=== PATIENT | male | born 1945 | race Caucasian/White ===

== ENCOUNTER 2019-12-21 15:06 | Emergency (ER) | payer OTHER, SELFPAY ==
[2019-12-21 15:17] VITALS: BP 133/63; PULSE 65; RESP 18; TEMP 36.8; O2SAT 93; BMI 26.6
--- NOTE | 2019-12-21 15:32 | XR_ITS ---
WS: [id number] PORTABLE CHEST HISTORY: dyspnea/cough COMPARISON: 09/22/2016 Prior CABG. Lungs are clear and well expanded. No pleural effusion or pneumothorax. Cardiac size: Normal. Mediastinum/Aorta: Mild atherosclerosis aorta. No acute osseous abnormalities. XR/XR chest 1V portable [id number] IMPRESSION: Prior CABG. No acute cardiopulmonary disease.
--- NOTE | 2019-12-21 15:32 | ECG_ITS ---
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 Measurements Intervals [place] Rate: 59 P: 48 [place]: 212 QRS: 25 QRSD: 99 T: 41 QT: 443 QTc: 442 Interpretive Statements SINUS BRADYCARDIA WITH FIRST DEGREE AV BLOCK Compared to ECG 09/22/2016 18:26:27 First degree AV block now present Sinus rhythm no longer present Myocardial infarct finding no longer present Diffuse early repolarization change Electronically Signed On 12-21-2019 20:34:46 CDT by Mirella Flannery M.D. [email or web address]
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
[2019-12-21 16:46] LABS: Basophils % 0.3 %; Eosinophils # 0.1 10^3/uL (0.0-0.8); Eosinophils % 0.8 %; Hematocrit 42.3 % (42.0-52.0); Hemoglobin 13.8 g/dL (11.7-16.6); Lymphocytes # 1.2 10^3/uL (0.8-4.8); Lymphocytes % 19.1 %; Mean Corpuscular HGB Conc 32.6 g/dL (30.0-36.0); Mean Corpuscular Hemoglobin 31.7 pg (28.0-34.0); Mean Platelet Volume 10.3 fL (7.4-10.4); Monocytes # 0.5 10^3/uL (0.2-0.9); Monocytes % 7.6 %; Neutrophils # 4.67 10^3/uL (1.8-7.7); Nucleated Red Blood Cells % 0 %; Platelet Count 188 10^3/cmm (130-400); Red Blood Count 4.36 10^6/uL (4.1-5.3); Red Cell Distribution Width 12.6 % (12.1-15.1); White Blood Count 6.5 10^3/uL (4.0-10.0)
[2019-12-21 17:04] LABS: Alanine Aminotransferase 58 U/L (0-41); Albumin Level 4.5 g/dL (3.5-5.2); Alkaline Phosphatase 76 IU/L (40-130); Anion Gap 14.6 (5-19); Aspartate Amino Transferase 33 U/L (0-40); Blood Urea Nitrogen 19 mg/dL (8-23); Calcium 9.2 mg/dL (8.5-10.5); Carbon Dioxide 24 mmol/L (22-29); Chloride 106 mmol/L (98-107); Globulin 2.9 g/dL (1.3-4.6); Glucose 111 mg/dL (65-115); Osmolality Calculated 287 mOsm/kg (285-295); Potassium 4.6 mmol/L (3.5-5.1); Sodium 140 mmol/L (136-145); Total Bilirubin 0.3 mg/dL (0.15-1.2); Total Protein 7.4 g/dL (6.6-8.7)
[2019-12-21 17:07] VITALS: BP 132/70; BP 137/66; BP 139/63; PULSE 62; PULSE 63; PULSE 65; O2SAT 97
--- NOTE | 2019-12-21 17:13 | CTR_ITS ---
PROCEDURE INFORMATION: Exam: CT Head Without Contrast Exam date and time: 12/21/2019 5:20 PM Age: 74 years old Clinical indication: Dizziness; Additional info: Near syncope, visual changes TECHNIQUE: Imaging protocol: Computed tomography of the head without contrast. Radiation optimization: All CT scans at this facility use at least one of these dose optimization techniques: automated exposure control; mA and/or kV adjustment per patient size (includes targeted exams where dose is matched to clinical indication); or iterative reconstruction. COMPARISON: CT head wo con* [id number] 12/04/2014 2:28 PM RADIATION DOSE METRICS: Total DLP (mGy-cm): 885.05 FINDINGS: Brain: Currently no visible evidence of acute intracranial pathologic process, trauma, or hemorrhage. Advanced small vessel ischemic disease with senile periventricular leukomalacia. Evidence of antecedent lacunar infarctions. Old lacunar infarction left lentiform nucleus versus large Virchow Thomas space. Atrophic changes not inconsistent with the patient's chronological age. Ventricles: No ventriculomegaly. Bones/joints: Unremarkable. No acute fracture. Sinuses: Visualized sinuses are unremarkable. No fluid levels. Mastoid air cells: Visualized mastoid air cells are well aerated. Vasculature: Advanced cerebral arterial sclerosis. Soft tissues: Unremarkable. CT/CT head wo con* [id number] IMPRESSION: 1. Currently no visible evidence of acute intracranial pathologic process or hemorrhage. 2. Advanced small vessel ischemic disease. 3. Antecedent lacunar infarctions. 4. Atrophic changes not inconsistent with the patient's age. 5. Advanced cerebral arterial sclerosis. Radiation Dose CTDIVOL = (mGy): DLP = 885.05 (mGy-cm)
[2019-12-21 17:26] LABS: Add Urine Microscopic? YES; Bilirubin Urine Neg (NEGATIVE); Blood Urine Trace (Negative); Glucose Urine UA Norm (Normal); Ketones Urine Negative (Negative); Leukocyte Esterase Urine 1+ (Negative); Nitrate Urine Negative (Negative); Protein Urine Neg (Negative); Urine Appearance Cloudy (CLEAR); Urine Color Yellow (Yellow); Urobilinogen Urine 1 mg/dL (Negative); pH Urine 6 (5-7)
[2019-12-21 17:27] LABS: RBC Urine 0-4 /hpf (0-2)
[2019-12-21 17:28] LABS: Add Urine Culture? Yes; Bacteria Urine 4+; Squamous Epithelial Cell Urine 0-4 (0-5); WBC Urine 80-100 /hpf (0-5)
[2019-12-21 19:06] VITALS: BP 134/66; PULSE 66; RESP 16; O2SAT 97
== END 2019-12-21 19:09 | disposition home or self-care (01) ==
PROVIDERS: Emergency Provider Family Medicine; PCP Internal Medicine
DX: R55 Syncope and collapse (principal); N30.90 Cystitis, unspecified without hematuria; I25.10 Atherosclerotic heart disease of native coronary artery without angina pectoris; I10 Essential (primary) hypertension; Z87.891 Personal history of nicotine dependence
CPT/HCPCS: 12345; 36415; 70450; 71045; 80053; 81001; 81003; 85025; 87086; 93005; 99283; 99284

== ENCOUNTER → 2020-08-01 10:38 | Outpatient (BNVA) | payer OTHER, SELFPAY | PROVIDERS: PCP Internal Medicine; Visit Provider Internal Medicine Cardiovascular Disease | DX: I25.10 Atherosclerotic heart disease of native coronary artery without angina pectoris (principal); E78.5 Hyperlipidemia, unspecified; I10 Essential (primary) hypertension | CPT/HCPCS: 80053; 80061; 85025 ==

== ENCOUNTER → 2021-02-06 08:27 | Outpatient (BNVA) | payer OTHER, SELFPAY | PROVIDERS: PCP Internal Medicine; Referring Provider Family Medicine; Visit Provider Nurse Practitioner | DX: G31.84 Mild cognitive impairment of uncertain or unknown etiology (principal) | CPT/HCPCS: 99204 ==

== ENCOUNTER → 2021-03-14 14:18 | Outpatient (BNVA) | payer OTHER, SELFPAY | PROVIDERS: PCP Internal Medicine; Visit Provider Nurse Practitioner Family | DX: Z20.822 Contact with and (suspected) exposure to COVID-19 (principal); J06.9 Acute upper respiratory infection, unspecified | CPT/HCPCS: 87635 ==

== ENCOUNTER 2021-03-21 13:03 | Outpatient (CLI) | payer OTHER, SELFPAY ==
--- NOTE | 2021-03-21 13:45 | MR_ITS ---
WS: [id number] MRI HEAD WITH CONTRAST TECHNIQUE: Sagittal T1, T2 axial, T2 axial FLAIR, axial susceptibility weighted imaging, axial diffus ion weighted images, and coronal T2 images were obtained. Pre and post-T1 axial and post T1 coronal i mages. ADC and FSPGR images. CLINICAL INFORMATION: R41.3 - Other amnesia COMPARISON: CT January 10, 2021 FINDINGS: No evidence of restricted diffusion to suggest acute ischemia. Ventricular system and basal cisterns are patent. Moderate to advanced small vessel changes with moderate parenchymal volume loss. Small ve ssel changes in the nedra. Chronic lacunar infarct in the left lateral basal ganglia. Normal posterior fossa. Tiny chronic lacunar infarcts right cerebellum. Normal vascular flow voids at the skull base. No extra-axial fluid collections. No evidence of mass or mass effect. Paranasal sinuses and mastoid air cells are well aerated. No hemosiderin on the susceptibility weighted images. Normal optic chiasm and pituitary infundibulum. Moderate symmetric atrophy temporal lobes and hippocampal formations. Normal cavernous sinuses and M giana's cave. No abnormal gadolinium enhancement. MR/MR head wo/w con [id number] IMPRESSION: 1. No evidence of restricted diffusion to suggest acute ischemia. 2. Moderate to advanced small vessel changes with moderate parenchymal volume loss. Small vessel changes in the nedra. 3. Chronic lacunar infarct left basal ganglia. 4. A few tiny chronic lacunar infarcts right cerebellum. 5. Moderate symmetric atrophy temporal lobes and hippocampal formations. No si gnal abnormalities in the mesial temporal lobes. 6. No abnormal gadolinium enhancement.
== END 2021-03-21 13:04 | disposition home or self-care (01) ==
LOC: RADSHAW 13:07
PROVIDERS: PCP Family Medicine; Visit Provider Nurse Practitioner
DX: R41.89 Other symptoms and signs involving cognitive functions and awareness (principal); R41.3 Other amnesia
CPT/HCPCS: 70553; A9579

== ENCOUNTER → 2021-10-02 07:54 | Outpatient (BNVA) | payer OTHER, SELFPAY | PROVIDERS: PCP Family Medicine; Visit Provider Nurse Practitioner | DX: F01.50 Vascular dementia, unspecified severity, without behavioral disturbance, psychotic disturbance, mood disturbance, and anxiety (principal) | CPT/HCPCS: 99213; 99214 ==

== ENCOUNTER 2021-12-30 09:51 | Emergency (ER) | payer OTHER, MEDICARE, SELFPAY ==
[2021-12-30 10:08] VITALS: BP 124/63; PULSE 59; RESP 16; TEMP 36.6; O2SAT 96; BMI 27.3
--- NOTE | 2021-12-30 10:17 | XRR_ITS ---
PROCEDURE INFORMATION: Exam: XR Lumbosacral Spine Exam date and time: 12/30/2021 10:28 AM Age: 76 years old Clinical indication: Patient HX: Low back pain. PT is unsure of what is causing the pain. X 3 wks. PT stated pain is getting worse and is now really bad pain in the low back that is not going away TECHNIQUE: Imaging protocol: Radiologic exam of the lumbosacral spine. Views: 2 or 3 views. COMPARISON: No relevant prior studies available. FINDINGS: Bones/joints: No spine curvature seen. The normal lumbar lordosis is maintained, without listhesis. No fracture identified. Vertebral body heights are well preserved. There is multilevel degenerative changes, manifested by intervertebral disc space narrowing, endplate osteophytes and facet joint arthrosis. Soft tissues: Unremarkable. XR/XR lumbar spine 2-3V* [id number] IMPRESSION: 1. No acute injury. 2. Degenerative changes of the lumbar spine.
[2021-12-30 10:19] VITALS: BP 124/63; PULSE 59; RESP 16; TEMP 36.6; O2SAT 96
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
[2021-12-30] MEDS: acetaminophen 500 mg Tablet 1000 MG PO (10:39)
[2021-12-30] MEDS: orphenadrine 30 mg/mL Inj 2 mL 60 MG IM (10:41)
--- NOTE | 2021-12-30 11:11 | PC.NURSE ---
Pt states that pain to lower back has improved to a 3/10 after having received ordered tylenol, methylprednisolone, and ophenadrine.
[2021-12-30 11:40] VITALS: BP 158/70; PULSE 61; RESP 16; O2SAT 95
== END 2021-12-30 11:30 | disposition home or self-care (01) ==
PROVIDERS: Emergency Provider Physician Assistant; PCP Family Medicine
DX: M54.16 Radiculopathy, lumbar region (principal); Z79.02 Long term (current) use of antithrombotics/antiplatelets; Z79.82 Long term (current) use of aspirin; I25.10 Atherosclerotic heart disease of native coronary artery without angina pectoris; E78.5 Hyperlipidemia, unspecified; I10 Essential (primary) hypertension; Z87.891 Personal history of nicotine dependence
CPT/HCPCS: 72100; 96372; 99284; J2360; J2930

== ENCOUNTER 2022-01-16 13:21 | Emergency (ER) | payer OTHER, MEDICARE, SELFPAY ==
[2022-01-16 13:41] VITALS: BP 153/73; PULSE 67; RESP 16; TEMP 36.5; O2SAT 95; BMI 26.6
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
[2022-01-16 14:30] VITALS: RESP 18
[2022-01-16] MEDS: morphine 4 mg/mL SDV 1 mL IM (14:30)
[2022-01-16] MEDS: orphenadrine 30 mg/mL Inj 2 mL 60 MG IM (14:30)
--- NOTE | 2022-01-17 11:32 | DCPLANNER ---
Addendum entered by Mehnaz Bee 01/31/22 13:12: Patient had a follow up appointment for patient with ortho on 01.28.22 - patient did attend appointment. Addendum entered by Mehnaz Bee 01/17/22 11:43: Patient has [employer] insurance, case briefer sent patients information to [facility] with [employer] in [facility] community for the authorization process to be started. Original Note: product management manager had message to schedule a follow up appointment for patient with ortho. product management manager sent patients information to the front office staff at ortho. Patients information will be printed and reviewed. Clinic will call patient with appointment information.
== END 2022-01-16 15:18 | disposition home or self-care (01) ==
PROVIDERS: Emergency Provider Physician Assistant; PCP Family Medicine
DX: M54.16 Radiculopathy, lumbar region (principal); Z79.02 Long term (current) use of antithrombotics/antiplatelets; Z79.82 Long term (current) use of aspirin; I25.10 Atherosclerotic heart disease of native coronary artery without angina pectoris; E78.5 Hyperlipidemia, unspecified; I10 Essential (primary) hypertension; Z87.891 Personal history of nicotine dependence
CPT/HCPCS: 96372; 99284; J2270; J2360

== ENCOUNTER 2022-01-24 06:00 | Outpatient (RCR) | payer OTHER, SELFPAY | END 2022-01-29 23:59 | disposition home or self-care (01) | LOC: SPT 06:00 | PROVIDERS: PCP Family Medicine; Visit Provider Family Medicine | DX: M54.50 Low back pain, unspecified (principal) | CPT/HCPCS: 97110; 97161 ==

== ENCOUNTER 2022-01-26 14:15 | Emergency (ER) | payer OTHER, MEDICARE, SELFPAY ==
[2022-01-26 14:38] VITALS: BP 139/64; PULSE 65; RESP 18; TEMP 36.4; O2SAT 94; BMI 26.6
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
== END 2022-01-26 16:06 | disposition home or self-care (01) ==
PROVIDERS: Emergency Provider Physician Assistant; PCP Family Medicine
DX: G89.29 Other chronic pain (principal); M54.50 Low back pain, unspecified; Z79.02 Long term (current) use of antithrombotics/antiplatelets; Z79.82 Long term (current) use of aspirin; I25.10 Atherosclerotic heart disease of native coronary artery without angina pectoris; E78.5 Hyperlipidemia, unspecified; I10 Essential (primary) hypertension; Z87.891 Personal history of nicotine dependence
CPT/HCPCS: 99283

== ENCOUNTER → 2022-01-28 09:48 | Outpatient (BNVA) | payer OTHER, MEDICARE, SELFPAY | PROVIDERS: PCP Family Medicine; Visit Provider Physician Assistant | DX: M51.36 Other intervertebral disc degeneration, lumbar region (principal) | CPT/HCPCS: 72110 ==

== ENCOUNTER 2022-01-30 06:00 | Outpatient (RCR) | payer OTHER, SELFPAY | END 2022-02-28 23:59 | disposition home or self-care (01) | LOC: SPT 06:00 | PROVIDERS: PCP Family Medicine; Visit Provider Family Medicine | DX: M54.50 Low back pain, unspecified (principal) | CPT/HCPCS: 97032; 97110 ==

== ENCOUNTER 2022-02-03 12:29 | Emergency (ER) | payer OTHER, MEDICARE, SELFPAY ==
[2022-02-03 12:58] VITALS: BP 133/84; PULSE 72; RESP 18; TEMP 36.8; O2SAT 95; BMI 27.3
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
[2022-02-03 14:27] VITALS: BP 146/77; PULSE 64; RESP 16; O2SAT 95
== END 2022-02-03 14:29 | disposition home or self-care (01) ==
PROVIDERS: Emergency Provider Registered Nurse; PCP Family Medicine
DX: M54.30 Sciatica, unspecified side (principal); Z79.02 Long term (current) use of antithrombotics/antiplatelets; Z79.82 Long term (current) use of aspirin; I25.10 Atherosclerotic heart disease of native coronary artery without angina pectoris; E78.5 Hyperlipidemia, unspecified; I10 Essential (primary) hypertension; Z87.891 Personal history of nicotine dependence
CPT/HCPCS: 99283

== ENCOUNTER → 2022-02-07 10:05 | Outpatient (BNVA) | payer OTHER, SELFPAY | PROVIDERS: PCP Family Medicine; Visit Provider Nurse Practitioner | DX: I67.89 Other cerebrovascular disease (principal); F01.50 Vascular dementia, unspecified severity, without behavioral disturbance, psychotic disturbance, mood disturbance, and anxiety | CPT/HCPCS: 99213; 99214 ==

== ENCOUNTER → 2022-02-19 07:59 | Outpatient (BNVA) | payer OTHER, SELFPAY | PROVIDERS: PCP Family Medicine; Visit Provider Physician Assistant | DX: M54.50 Low back pain, unspecified (principal); M79.604 Pain in right leg | CPT/HCPCS: 99213 ==

== ENCOUNTER → 2022-03-13 09:35 | Outpatient (BNVA) | payer OTHER, SELFPAY | PROVIDERS: PCP Family Medicine; Visit Provider Anesthesiology Pain Medicine | DX: M51.36 Other intervertebral disc degeneration, lumbar region (principal); M47.816 Spondylosis without myelopathy or radiculopathy, lumbar region; R41.89 Other symptoms and signs involving cognitive functions and awareness; M79.604 Pain in right leg; M79.605 Pain in left leg; Z87.891 Personal history of nicotine dependence | CPT/HCPCS: 99204 ==

== ENCOUNTER 2022-03-26 09:54 | Outpatient (CLI) | payer OTHER, SELFPAY ==
--- NOTE | 2022-03-26 10:15 | MR_ITS ---
WS: [id number] MRI LUMBAR SPINE NONCONTRAST TECHNIQUE: Sagittal T1, T2 and STIR imaging. Axial T1 and T2 imaging. CLINICAL INFORMATION: pain COMPARISON: CT lumbar spine February 10, 2022 FINDINGS: Mild lumbar curve. No acute compression. No high-grade central canal stenosis. L1-L2: Normal. L2-L3: Mild annular bulging. Slight effacement of ventral thecal sac. Mild LEFT and no RIGHT foramina l narrowing. Mild facet arthropathy. L3-L4: Mild annular bulging. Slight effacement of ventral thecal sac. Slight impingement traversing L 4 nerve roots bilaterally. Moderate LEFT and mild RIGHT foraminal narrowing. Mild central canal steno sis. Moderate facet arthropathy. L4-L5: Mild annular bulging with slight impingement traversing RIGHT L5 nerve root in the subarticula r recess. RIGHT foraminal protrusion with moderate RIGHT foraminal narrowing. Impingement on the exit ing RIGHT L4 nerve root. LEFT foramen is patent. Moderate facet arthropathy. L5-S1: Mild disc bulging with osteophytic ridging. Slight impingement traversing LEFT greater than RI GHT S1 nerve roots. Moderate to advanced facet arthropathy. Moderate bilateral foraminal narrowing. LEFT renal cysts. MR/MR lumbar spine wo con* [id number] IMPRESSION: 1. Mild lumbar curve. No acute compression. No high-grade central canal stenos is. 2. Mild central canal stenosis L3-L4 and L4-L5. Impingement traversing L4 nerv e roots bilaterally and RIGHT L5-nerve roots in the subarticular recess. 3. Moderate LEFT L3-L4 and RIGHT L4-L5 foraminal narrowing. 4. Moderate bilateral L5-S1 bony foraminal narrowing. 5. Moderate facet arthropathy L4-L5 and L5-S1.
== END 2022-03-26 09:55 | disposition home or self-care (01) ==
LOC: RAD 09:55
PROVIDERS: PCP Family Medicine; Visit Provider Physician Assistant
DX: M48.061 Spinal stenosis, lumbar region without neurogenic claudication (principal); M47.816 Spondylosis without myelopathy or radiculopathy, lumbar region; M47.817 Spondylosis without myelopathy or radiculopathy, lumbosacral region
CPT/HCPCS: 72148; 99213

== ENCOUNTER → 2022-03-27 13:52 | Outpatient (BNVA) | payer OTHER, SELFPAY | PROVIDERS: PCP Family Medicine; Visit Provider Anesthesiology Pain Medicine | DX: M54.16 Radiculopathy, lumbar region (principal); M79.604 Pain in right leg | CPT/HCPCS: 64483; 64484 ==

== ENCOUNTER → 2022-04-08 10:42 | Outpatient (BNVA) | payer OTHER, SELFPAY | PROVIDERS: PCP Family Medicine; Referring Provider Family Medicine; Visit Provider Student in an Organized Health Care Education/Training Program | DX: M65.331 Trigger finger, right middle finger (principal) | CPT/HCPCS: 20550; 99204; J3301; J3490 ==

== ENCOUNTER → 2022-04-10 12:21 | Outpatient (BNVA) | payer OTHER, SELFPAY | PROVIDERS: PCP Family Medicine; Visit Provider Anesthesiology Pain Medicine | DX: M54.16 Radiculopathy, lumbar region (principal); M79.604 Pain in right leg | CPT/HCPCS: 64483; 64484; J1100; J3490 ==

== ENCOUNTER → 2022-04-28 09:40 | Outpatient (BNVA) | payer OTHER, SELFPAY | PROVIDERS: PCP Family Medicine; Visit Provider Anesthesiology Pain Medicine | DX: M79.605 Pain in left leg (principal); M51.36 Other intervertebral disc degeneration, lumbar region; M47.816 Spondylosis without myelopathy or radiculopathy, lumbar region; R41.89 Other symptoms and signs involving cognitive functions and awareness; M79.604 Pain in right leg | CPT/HCPCS: 99214 ==

== ENCOUNTER → 2022-05-06 08:21 | Outpatient (BNVA) | payer OTHER, SELFPAY | PROVIDERS: PCP Family Medicine; Visit Provider Orthopaedic Surgery | DX: M48.062 Spinal stenosis, lumbar region with neurogenic claudication (principal) | CPT/HCPCS: 99214 ==

== ENCOUNTER 2022-05-14 07:18 | Outpatient (CLI) | payer OTHER, SELFPAY | END 2022-05-14 07:19 | disposition home or self-care (01) | LOC: RT 06-09 07:19 | PROVIDERS: PCP Family Medicine; Visit Provider Orthopaedic Surgery | DX: Z13.6 Encounter for screening for cardiovascular disorders (principal); I44.0 Atrioventricular block, first degree; R00.1 Bradycardia, unspecified | CPT/HCPCS: 93005 ==

== ENCOUNTER → 2022-05-19 06:53 | Outpatient (BNVA) | payer OTHER, SELFPAY | PROVIDERS: PCP Family Medicine; Visit Provider Student in an Organized Health Care Education/Training Program | DX: M65.331 Trigger finger, right middle finger (principal) | CPT/HCPCS: 99214 ==

== ENCOUNTER 2022-05-21 08:56 | Day surgery (SDC) | payer OTHER, SELFPAY ==
[2022-05-14 08:24] VITALS: BMI 27.5
--- NOTE | 2022-05-14 08:42 | ECG_ITS ---
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 Measurements Intervals Foster Rate: 56 P: 9 TX: 229 QRS: 13 QRSD: 100 T: 41 QT: 431 QTc: 419 Interpretive Statements SINUS BRADYCARDIA WITH FIRST DEGREE AV BLOCK Compared to ECG 12/21/2019 17:02:21 No significant changes Electronically Signed On 05-14-2022 18:24:34 QUALITY REVIEW SPECIALIST by Mirella Flannery M.D. [id number]
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
--- NOTE | 2022-05-21 | XR_ITS ---
WS: [id number] Exam: XR lumbar spine 1V [id number] Date/Time of Exam: 05/21/2022 12:00 AM Reason For Exam: OR PIC A single anterior posterior C-arm intraoperative image of the mid and lower lumbar spine is submitted for evaluation. A localization port is positioned over the L4-5 disc level to the right of midline. No other signific ant finding on this limited study.
[2022-05-21 09:30] VITALS: BP 135/73; PULSE 55; RESP 18; TEMP 36.2; O2SAT 97
[2022-05-21] MEDS: sodium chloride 0.9% 1,000 ML 30 ML IV (09:58)
--- NOTE | 2022-05-21 11:29 | W.PM.OPSUD ---
Surgery/Procedure H&P Update DATE OF PROCEDURE: May 21, 2022 DATE H&P PERFORMED: 05/06/22 H&P UPDATE INFORMATION: I have reviewed H&P completed within last 30 days, I have examined patient prior to procedure and No changes to prior documentation PREOP DIAGNOSIS: Lumbar stenosis with neurogenic claudication PLANNED PROCEDURE: Operation Date: 05/21/22 10:50 Proposed Procedures p Lumbar Spine Decompression L4/4 48612/[id number]/m48.062(Right) - Danie Mejias DO
[2022-05-21] MEDS: ceFAZolin 2,000 MG in sodium chloride 0.9% (plus) 50 ML 100 MG IV (12:22)
[2022-05-21 12:58] VITALS: BP 154/69; PULSE 93; RESP 16; TEMP 36.2; O2SAT 96
[2022-05-21 13:03] VITALS: BP 135/116; PULSE 82; RESP 16; O2SAT 97
[2022-05-21 13:08] VITALS: BP 148/66; PULSE 80; RESP 18; O2SAT 98
--- NOTE | 2022-05-21 13:10 | PM.OP ---
Operative Report Date of procedure: May 21, 2022 Pre-op diagnosis: Preop Diagnosis Lumbar stenosis with neurogenic claudication Post-op diagnosis: same Procedure done: 1. Right L4/5 laminectomy with partial facetectomy Surgeon: Danie Mejias Estimated blood loss (mL): 20 Procedure: 1. Right L4/5 laminectomy with partial facetectomy Patient is brought to the operative suite. After undergoing anesthesia they are placed in the prone position. All areas of impingement are well padded. Patient is then prepped and draped in the normal sterile fashion. A skin incision is made over the L4-5 level. This is confirmed under c-arm guidance. A series of dilators are passed and the tubular retractor is docked on the L4 lamina. A bovie is used to clear the soft tissue off the lamina and the L 4/5 facet joint. A high speed constance is then used to perform the laminectomy and take down the medial aspect of the L 4/5 facet joint. A kerrison rongeure was then used to take down the remaining lamina and smooth the edge of the laminectomy up to the point where the ligamentum flavum attaches. Attention was then brought to the medial aspect of the facet joint. The remaining medial aspect of the superior and inferior aspect of the facet joint were taken down with the kerrison from the pedicle of L4 to L 5. The facet joint had significant hypertrophy. Attention was then brought to the Ligamentum Flavum. The ligament was taken down from the lamina of L4 to L5 and out medially to the remaining facet joint. The ligament was thick. The dura was then exposed. The dura was in good repair. The L4 nerve was then traced with a curette out the L4/5 foramen and found to be adequately decompressed. The L5 nerve was traced with a curette around the L5 pedicle. The lateral recess was opened with a kerrison helping to further decompress the L5 nerve. Wound is then irrigated copiously with saline and surgiflo is used to stop any bleeding. The tubular retractor is removed and the wound is closed with vicryl and monocryl suture. Glue is then used to protect the wound. A sterile dressing is then placed. Patient was then placed in the supine position and transferred to the PACU in stable condition.
[2022-05-21 13:13] VITALS: BP 122/48; PULSE 82; RESP 18; TEMP 36.3; O2SAT 97
[2022-05-21 13:20] VITALS: BP 159/78; PULSE 75; RESP 17; TEMP 36.3; O2SAT 95
--- NOTE | 2022-05-21 13:40 | P.ANESUD_ITS ---
Pre-Anesthetic Update Pre-Anesthetic Assessment: Date of Surgery/Procedure: 05/21/22 Preop Christy gnosis: Lumbar stenosis with neurogenic claudication Proposed Procedure: Operation Date: 05/21/22 10:50 Proposed Procedures p Lumbar Spine Decompression L4/4 48606/[id number]/m48.062(Right) - Danie Mejias, DO Any changes to Pre-Anesthetic Assessment?: No Last Intake: Intake Last Liquid Date 05/20/22 Last Liquid Time 14:00 Last Solid Date 05/20/22 Last Solid Time 14:00 Vitals: Temperature 97.3 F L 05/21/22 13:20 Temperature Source Temporal Artery S can 05/21/22 13:20 Pulse Rate 75 05/21/22 13:20 Respiratory Rate 17 05/21/22 13:20 Blood Pressure 159/78 05/21/22 13:20 Blood Pressure Mignon n 105 05/21/22 13:20 Pulse Oximetry 95 05/21/22 13:20 Oxygen Delivery Me thod 05/21/22 13:20 Exam: Pre-Anes Outpt Exam: alert, oriented x 3, clear to auscultation bilaterally and regular rate & rhythm Cardiac Studies: No Data to Display
--- NOTE | 2022-05-21 15:22 | ANE.PACU2 ---
Inpatient post-anesthesia follow up: Airway intact: Yes Vital signs: Temperature 97.3 F Pulse Rate 75 Respiratory Rate 17 Blood Pressure 159/78 Pulse Oximetry 95 Oxygen Delivery Me thod Room Air Oxygen Flow Rate Fraction of Inspir ed Oxygen Hydration adequate: Yes Nausea and vomiting: No Pain level: 3 Mental status: Baseline
== END 2022-05-21 14:00 | disposition home or self-care (01) ==
PROVIDERS: PCP Family Medicine; Visit Provider Orthopaedic Surgery
PROC: (CPT 63005; principal; 2022-05-21 10:50)
DX: M48.062 Spinal stenosis, lumbar region with neurogenic claudication (principal); I25.10 Atherosclerotic heart disease of native coronary artery without angina pectoris; I25.2 Old myocardial infarction; K21.9 Gastro-esophageal reflux disease without esophagitis; Z95.5 Presence of coronary angioplasty implant and graft; Z79.82 Long term (current) use of aspirin; N40.0 Benign prostatic hyperplasia without lower urinary tract symptoms; E78.5 Hyperlipidemia, unspecified; I10 Essential (primary) hypertension; Z87.891 Personal history of nicotine dependence
CPT/HCPCS: 63047; 72020; 76000; J0690; J1100; J1170; J2405; J2704; J2710; J3010; J3490; J7030

== ENCOUNTER 2022-05-28 08:10 | Day surgery (SDC) | payer OTHER, SELFPAY ==
[2022-05-27 14:37] VITALS: BMI 27.2
[2022-05-28 08:34] VITALS: BP 125/66; PULSE 73; RESP 15; TEMP 36.3; O2SAT 97
[2022-05-28] MEDS: ketorolac 30 mg/mL INJ IVP (08:48)
[2022-05-28] MEDS: sodium chloride 0.9% 1,000 ML 30 ML IV (08:48)
[2022-05-28] MEDS: acetaminophen 1,000 MG/100 ML PIGGYBACK 400 MG IV (08:48)
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
--- NOTE | 2022-05-28 09:39 | W.PM.OPSUD ---
Surgery/Procedure H&P Update DATE OF PROCEDURE: May 28, 2022 DATE H&P PERFORMED: 05/19/22 CHANGES TO PREVIOUS DOCUMENTATION: none PREOP DIAGNOSIS: Right Middle Finger Trigger PRIMARY INDICATION FOR PROCEDURE: right middle finger trigger PLANNED PROCEDURE: Operation Date: 05/28/22 12:05 Proposed Procedures p Right middle trigger finger release:[id number] ,M65.331(Right) - Luis Witt DO
[2022-05-28] MEDS: ceFAZolin 2,000 MG in sodium chloride 0.9% (plus) 50 ML 100 MG IV (09:44)
[2022-05-28] MEDS: lidocaine 2% INJ 20 mL INJECTION (10:06)
--- NOTE | 2022-05-28 10:22 | PM.OP2 ---
Brief Operative Note Date of procedure: 06/01/22 Pre-op diagnosis: Right middle finger trigger Post-op diagnosis: same Procedure Done: Right middle finger trigger release Surgeon: Luis Witt Estimated blood loss (mL): 2 Complications: None Post-op Plan: Patient taken to PACU in stable condition recovering well. Patient will receive appropriate discharge instructions as well as pain medication postoperatively. Patient will follow-up with me in the office in 2 weeks. Patient understands and agrees with current plan. All questions answered. 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
--- NOTE | 2022-05-28 10:22 | PM.PACU ---
PACU note Narrative: Patient taken to PACU in stable condition. Patient recovering well. Dressing on in place and clean dry and intact. Patient received local anesthesia and right middle finger has decreased sensation. Fingertip warm well-perfused brisk capillary refill less than 2 seconds. Patient is able to wiggle fingers. Exam: awake Disposition: discharged
--- NOTE | 2022-05-28 10:22 | PM.OP ---
Operative Report Date of procedure: May 28, 2022 Pre-op diagnosis: Preop Diagnosis Right Middle Finger Trigger Post-op diagnosis: Same Procedure done: Right middle finger trigger release Surgeon: Luis Witt DO Estimated blood loss: 2 mL 8 minutes IV fluids: See anesthesia record Complications: None Findings: See operative report narrative Condition: stable Disposition: same day Brief History: Patient has been seen evaluated outpatient setting with findings consistent with a right middle finger trigger. This has been treated conservatively in the outpatient setting and is failed conservative treatment. This is continue to bother him and have issues with daily living given his pain and triggering of his right middle finger. We detailed out the risk benefits complications alternatives to surgical nonsurgical treatment options. Understanding these risks he agrees to proceed with surgical intervention of the right middle finger trigger release. All questions been answered at this time. Patient elects proceed with surgical intervention. Procedure: Patient seen and evaluated in the preoperative holding area. Consent reviewed and signed with patient. Correct extremity marked. Patient was then seen evaluated by anesthesia department once cleared for surgery was taken back to the operative suite. He was transported onto the OR table with right upper extremity on an armboard. Nonsterile tourniquet applied to the right upper arm. Patient went anesthesia per the anesthesia department. Once appropriately anesthetized the right upper extremity is then prepped and draped in standard orthopedic fashion. Patient received appropriate preoperative antibiotics. Final timeout performed. Patient received local anesthesia of the right middle finger under sterile aseptic technique. Once appropriately anesthetized Esmarch tourniquet was used exsanguinate the right upper extremity to 250 mmHg. Patient had an oblique palmar flexion crease over the right middle finger this was incorporated into the incision site. Incision was then made with scalpel strictly through skin. I then switched to Littler dissection scissors and spread longitudinally along the neurovascular bundles. Kasdan retractors were then placed and the neurovascular bundles were protected. I direct visualization of the A1 luiz which was then incised to its entirety with Littler dissection scissors. The flexor tendons were found to be irritated with noticeable inflammation however no significant tearing was noted. Utilizing Kasdan retractors made sure complete release of the A1 luiz both proximally and distally. Next I then introduced a rag nail and pulled the tendon through the incision and there is no triggering noted. At this point I had anesthesia wake the patient up and under direct visualization by the patient under local he was able to make a fist and no triggering was noted. At this point time this completed our procedure. Tourniquet was deflated. Hemostasis satisfactory with electrocautery. I then thoroughly irrigated the wound bed. Incision was then reapproximated with interrupted nylon suture Patient was then dressed in Xeroform and a bulky soft dressing. He was then taken to PACU in stable condition. Disposition: Patient taken to PACU in stable condition. Patient recovering well. Will receive appropriate discharge instructions as well as pain medication postoperatively. We will have patient follow-up with us in the office in 2 weeks. Patient understands and agrees with current plan. All questions answered.
[2022-05-28 10:24] VITALS: BP 133/70; PULSE 60; RESP 16; TEMP 36.2; O2SAT 97
[2022-05-28 10:30] VITALS: BP 137/68; PULSE 59; RESP 16; O2SAT 97
[2022-05-28 10:35] VITALS: BP 131/69; PULSE 60; RESP 16; O2SAT 98
--- NOTE | 2022-05-28 10:35 | PM.PACU ---
PACU note Narrative: VSS, Good respiratory effort, report to AREA DIRECTOR Exam: awake
--- NOTE | 2022-05-28 10:35 | P.PCN_ITS ---
PACU note Narrative: VSS, Good respiratory effort, report to RESOURCE PARAPROFESSIONAL Exam: awake
[2022-05-28 10:38] VITALS: BP 131/66; PULSE 58; RESP 15; TEMP 36.7
[2022-05-28 10:44] VITALS: BP 132/70; PULSE 54; RESP 16; TEMP 36.3; O2SAT 96
--- NOTE | 2022-05-28 12:55 | ANE.PACU2 ---
Inpatient post-anesthesia follow up: Airway intact: Yes Vital signs: Temperature 97.3 F Pulse Rate 54 Respiratory Rate 16 Blood Pressure 132/70 Pulse Oximetry 96 Oxygen Delivery Me thod Room Air Oxygen Flow Rate Fraction of Inspir ed Oxygen Hydration adequate: Yes Nausea and vomiting: No Pain level: 1 Mental status: Baseline
== END 2022-05-28 11:30 | disposition home or self-care (01) ==
PROVIDERS: PCP Family Medicine; Visit Provider Student in an Organized Health Care Education/Training Program
PROC: (CPT 26055; principal; 2022-05-28 11:55)
DX: M65.331 Trigger finger, right middle finger (principal); I25.10 Atherosclerotic heart disease of native coronary artery without angina pectoris; Z95.5 Presence of coronary angioplasty implant and graft; I10 Essential (primary) hypertension; I25.2 Old myocardial infarction; K21.9 Gastro-esophageal reflux disease without esophagitis; E78.5 Hyperlipidemia, unspecified; Z79.82 Long term (current) use of aspirin; N40.0 Benign prostatic hyperplasia without lower urinary tract symptoms; Z87.891 Personal history of nicotine dependence
CPT/HCPCS: 26055; J0131; J0690; J1885; J2795; J7030

== ENCOUNTER → 2022-05-29 13:33 | Outpatient (BNVA) | payer OTHER, SELFPAY | PROVIDERS: PCP Family Medicine; Visit Provider Physician Assistant | DX: Z98.890 Other specified postprocedural states (principal) | CPT/HCPCS: 99024 ==

== ENCOUNTER → 2022-06-12 07:30 | Outpatient (BNVA) | payer OTHER, SELFPAY | PROVIDERS: PCP Family Medicine; Visit Provider Student in an Organized Health Care Education/Training Program | DX: M65.331 Trigger finger, right middle finger (principal) | CPT/HCPCS: 99024 ==

== ENCOUNTER → 2022-07-10 13:14 | Outpatient (BNVA) | payer OTHER, SELFPAY | PROVIDERS: PCP Family Medicine; Visit Provider Physician Assistant | DX: Z98.890 Other specified postprocedural states (principal) | CPT/HCPCS: 99024 ==

== ENCOUNTER → 2022-07-28 08:52 | Outpatient (BNVA) | payer OTHER, SELFPAY | PROVIDERS: PCP Family Medicine; Visit Provider Anesthesiology Pain Medicine | DX: M48.062 Spinal stenosis, lumbar region with neurogenic claudication (principal); M51.36 Other intervertebral disc degeneration, lumbar region; M47.816 Spondylosis without myelopathy or radiculopathy, lumbar region; R41.89 Other symptoms and signs involving cognitive functions and awareness; M79.605 Pain in left leg; M79.604 Pain in right leg | CPT/HCPCS: 99213 ==

== ENCOUNTER → 2023-01-15 14:08 | Outpatient (BNVA) | payer OTHER, SELFPAY | PROVIDERS: PCP Family Medicine; Visit Provider Dermatology | DX: D48.5 Neoplasm of uncertain behavior of skin (principal); D18.01 Hemangioma of skin and subcutaneous tissue; L81.4 Other melanin hyperpigmentation; L82.1 Other seborrheic keratosis; L57.0 Actinic keratosis | CPT/HCPCS: 11102; 17000; 17003; 99203 ==

== ENCOUNTER → 2023-03-03 08:01 | Outpatient (BNVA) | payer OTHER, SELFPAY | PROVIDERS: PCP Family Medicine; Visit Provider Dermatology | DX: C44.319 Basal cell carcinoma of skin of other parts of face (principal) | CPT/HCPCS: 12052; 17311 ==

== ENCOUNTER → 2023-07-06 12:42 | Outpatient (BNVA) | payer OTHER, SELFPAY | PROVIDERS: PCP Family Medicine; Visit Provider Dermatology | DX: L29.9 Pruritus, unspecified (principal); L21.8 Other seborrheic dermatitis; L82.1 Other seborrheic keratosis; L85.3 Xerosis cutis; L57.8 Other skin changes due to chronic exposure to nonionizing radiation; Z85.828 Personal history of other malignant neoplasm of skin | CPT/HCPCS: 99214 ==

== ENCOUNTER 2023-09-10 06:31 | Outpatient (CLI) | payer OTHER, SELFPAY ==
--- NOTE | 2023-09-10 06:45 | US_ITS ---
WS: [id number] RIGHT UPPER QUADRANT ULTRASOUND HISTORY: DIARRHEA COMPARISON: None available. Liver: 15.6 cm in length. Normal size liver with heterogeneity from hepatic steatosis and areas of fa tty sparing. Portal Vein: Normal hepatopetal flow with monophasic waveform. Gallbladder: Normally distended gallbladder with no stones or wall thickening. CBD: 0.4 cm Pancreas: Obscured by bowel gas. Right kidney: 10.5 cm in length. Normal size kidney. Simple cyst upper pole measures 4.6 x 4.8 x 4.3 cm. Cyst was previously described on a CT from 2006 but slightly increased in overall diameter. Aorta and IVC: Unremarkable abdominal aorta and IVC. No ascites. IMPRESSION: 1. Normal gallbladder. 2. Variable echogenicity within the liver from hepatic steatosis and areas of sparing. 3. Simple cyst upper pole RIGHT kidney with a maximum diameter of 4.8 cm.
== END 2023-09-10 06:32 | disposition home or self-care (01) ==
LOC: RAD 06:31
PROVIDERS: PCP Family Medicine; Visit Provider Nurse Practitioner Family
DX: R19.7 Diarrhea, unspecified (principal); N20.0 Calculus of kidney
CPT/HCPCS: 76705

== ENCOUNTER → 2023-11-03 10:16 | Outpatient (BNVA) | payer OTHER, SELFPAY | PROVIDERS: PCP Family Medicine; Referring Provider Family Medicine; Visit Provider Surgery | DX: G89.29 Other chronic pain; R10.10 Upper abdominal pain, unspecified; R19.7 Diarrhea, unspecified | CPT/HCPCS: 99204 ==

== ENCOUNTER 2023-11-24 09:31 | Day surgery (SDC) | payer OTHER, SELFPAY ==
[2023-11-24 10:27] VITALS: BP 127/80; PULSE 65; RESP 18; TEMP 36.2; O2SAT 94; BMI 25.8
--- NOTE | 2023-11-24 10:29 | W.PM.OPSUD ---
Surgery/Procedure H&P Update DATE OF PROCEDURE: November 24, 2023 DATE H&P PERFORMED: 11/03/23 H&P UPDATE INFORMATION: I have reviewed H&P completed within last 30 days, I have examined patient prior to procedure, No changes to prior documentation and H&P is in [facility] EMR on date indicated PLANNED PROCEDURE: Operation Date: 11/24/23 11:00 Proposed Procedures p EGD 35436, 13353, G0105, R10.9(Not Applicable) - Carlos Desai MD s Colonoscopy(Not Applicable) - Carlos Desai MD
[2023-11-24] MEDS: sodium chloride 0.9% 1,000 ML 30 ML IV (10:39)
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
[2023-11-24 11:27] VITALS: BP 97/51; PULSE 57; RESP 18; TEMP 36.1; O2SAT 94
[2023-11-24 11:40] VITALS: BP 111/60; PULSE 54; RESP 16; O2SAT 94
[2023-11-24 11:57] VITALS: BP 113/70; PULSE 60; RESP 16; O2SAT 97
--- NOTE | 2023-11-24 12:15 | ANE.PACU2 ---
Inpatient post-anesthesia follow up: Airway intact: Yes Vital signs: Temperature 97 F Pulse Rate 60 Respiratory Rate 16 Blood Pressure 113/70 Pulse Oximetry 97 Oxygen Delivery Me thod Room Air Oxygen Flow Rate Fraction of Inspir ed Oxygen Hydration adequate: Yes Nausea and vomiting: No Pain level: 1 Mental status: Baseline
== END 2023-11-24 12:16 | disposition home or self-care (01) ==
PROVIDERS: PCP Family Medicine; Visit Provider Surgery
PROC: 0DJ08ZZ Inspection of Upper Intestinal Tract, Via Natural or Artificial Opening Endoscopic (ICD-10-PCS; CPT 43235; principal; 2023-11-24 11:00)
PROC: 0DJD8ZZ Inspection of Lower Intestinal Tract, Via Natural or Artificial Opening Endoscopic (ICD-10-PCS; CPT 45378; 2023-11-24 11:00)
DX: R19.7 Diarrhea, unspecified (principal); R10.10 Upper abdominal pain, unspecified; K44.9 Diaphragmatic hernia without obstruction or gangrene; K29.80 Duodenitis without bleeding; K29.50 Unspecified chronic gastritis without bleeding; Z79.82 Long term (current) use of aspirin; N40.0 Benign prostatic hyperplasia without lower urinary tract symptoms; E78.5 Hyperlipidemia, unspecified; I25.10 Atherosclerotic heart disease of native coronary artery without angina pectoris; I10 Essential (primary) hypertension; I25.2 Old myocardial infarction; Z95.1 Presence of aortocoronary bypass graft; Z95.5 Presence of coronary angioplasty implant and graft; Z86.73 Personal history of transient ischemic attack (TIA), and cerebral infarction without residual deficits
CPT/HCPCS: 43239; 45378; 88305; 88342; J2704; J7030

== ENCOUNTER → 2023-12-09 09:46 | Outpatient (BNVA) | payer OTHER, SELFPAY | PROVIDERS: PCP Family Medicine; Visit Provider Surgery | DX: Z09 Encounter for follow-up examination after completed treatment for conditions other than malignant neoplasm (principal) | CPT/HCPCS: 99213 ==

== ENCOUNTER → 2024-01-14 10:38 | Outpatient (BNVA) | payer OTHER, SELFPAY | PROVIDERS: PCP Family Medicine; Visit Provider Nurse Practitioner Family | DX: D48.5 Neoplasm of uncertain behavior of skin (principal); L82.0 Inflamed seborrheic keratosis; L29.9 Pruritus, unspecified; L21.8 Other seborrheic dermatitis; L57.8 Other skin changes due to chronic exposure to nonionizing radiation; L81.4 Other melanin hyperpigmentation; Z85.828 Personal history of other malignant neoplasm of skin | CPT/HCPCS: 11104; 17110; 99213 ==

== ENCOUNTER → 2024-01-25 10:16 | Outpatient (BNVA) | payer OTHER, SELFPAY | PROVIDERS: PCP Family Medicine; Visit Provider Nurse Practitioner Family | DX: L72.0 Epidermal cyst (principal); L57.8 Other skin changes due to chronic exposure to nonionizing radiation; Z85.828 Personal history of other malignant neoplasm of skin | CPT/HCPCS: 99213 ==

== ENCOUNTER → 2024-02-02 10:47 | Outpatient (BNVA) | payer OTHER, SELFPAY | PROVIDERS: PCP Family Medicine; Visit Provider Internal Medicine | DX: E27.8 Other specified disorders of adrenal gland (principal); I10 Essential (primary) hypertension | CPT/HCPCS: 36415; 80053; 82088; 84244; 99204 ==

== ENCOUNTER 2024-02-04 11:09 | Outpatient (CLI) | payer OTHER, SELFPAY ==
[2024-02-04 13:15] LABS: Total Volume Urine 1250 ml
[2024-02-04 13:24] LABS: Creatinine 24 Hour Urine 1337.5 mg/dL (955-2936); Urine Creatinine 107 mg/dL (39-259)
== END 2024-02-04 11:10 | disposition home or self-care (01) ==
LOC: LAB 11:11
PROVIDERS: PCP Family Medicine; Visit Provider Internal Medicine
DX: E27.8 Other specified disorders of adrenal gland (principal)
CPT/HCPCS: 82384; 82530; 82570; 83835

== ENCOUNTER → 2024-02-16 10:20 | Outpatient (BNVA) | payer OTHER, SELFPAY | PROVIDERS: PCP Family Medicine; Visit Provider Nurse Practitioner Family | DX: L82.0 Inflamed seborrheic keratosis (principal); D18.01 Hemangioma of skin and subcutaneous tissue; L57.8 Other skin changes due to chronic exposure to nonionizing radiation; Z85.828 Personal history of other malignant neoplasm of skin; Z48.817 Encounter for surgical aftercare following surgery on the skin and subcutaneous tissue | CPT/HCPCS: 17110; 99213 ==

== ENCOUNTER → 2024-07-13 08:55 | Outpatient (BNVA) | payer OTHER, SELFPAY | PROVIDERS: PCP Family Medicine; Visit Provider Nurse Practitioner Family | DX: D18.01 Hemangioma of skin and subcutaneous tissue (principal); L70.8 Other acne; Z08 Encounter for follow-up examination after completed treatment for malignant neoplasm; Z85.828 Personal history of other malignant neoplasm of skin; L82.0 Inflamed seborrheic keratosis; L53.8 Other specified erythematous conditions; L29.89 Other pruritus; L57.0 Actinic keratosis | CPT/HCPCS: 17000; 17110; 99213 ==

== ENCOUNTER → 2025-01-10 08:00 | Outpatient (BNVA) | payer OTHER, SELFPAY | PROVIDERS: PCP Family Medicine; Visit Provider Nurse Practitioner Family | DX: L82.1 Other seborrheic keratosis (principal); L57.8 Other skin changes due to chronic exposure to nonionizing radiation; D18.01 Hemangioma of skin and subcutaneous tissue; Z08 Encounter for follow-up examination after completed treatment for malignant neoplasm; Z85.828 Personal history of other malignant neoplasm of skin | CPT/HCPCS: 17000; 99213 ==

== ENCOUNTER → 2025-05-09 14:36 | Outpatient (BNVA) | payer OTHER, SELFPAY | PROVIDERS: PCP Family Medicine; Referring Provider Nurse Practitioner; Visit Provider Internal Medicine Cardiovascular Disease | DX: R07.9 Chest pain, unspecified (principal); I44.0 Atrioventricular block, first degree; R94.31 Abnormal electrocardiogram [ECG] [EKG] | CPT/HCPCS: 93005 ==

== ENCOUNTER 2025-05-16 08:10 | Outpatient (CLI) | payer OTHER, SELFPAY ==
--- NOTE | 2025-05-16 08:28 | NMCV_ITS ---
NM efren perf SPECT r/s* [id number] Luigi Bean Age: 80 Gender: M : 1945 Exam Date: 05/16/2025 08:58 Ordering Phys: Kasandra Saldana MD ([email or web address]) Technologist: MINERVA Wilkinson Exam Location: [facility] Indications: cp STRESS TEST Please see separate stress test report in [facility] for full findings IMAGE PROTOCOL Rest/Stress 1 Lexiscan Day Radiopharmaceutical Dose (mCi) Administration Site Administered by Rest: Tc-99m 10.4 IV MINERVA Wilkinson Sestamibi Stress:Tc-99m 32.4 IV MINERVA Jose Sestamibi Rest: 16-May-2025 60 Discovery 630 Stress: 16-May-2025 30 Discovery 630 0.4mg Lexiscan. Images obtained in supine and prone position. SPECT RESULTS Technical Quality: Good Raw Data Analysis: Normal Image Corrections: No attenuation or motion correction applied Summed Stress Score: 6 Summed Rest Score: 2 Summed Difference Score: 4 PERFUSION FINDINGS Large area moderate to severe reversibility noted in basal to mid anterior and anterolateral wall suggestive of ischemia in LAD territory. Medium to large area of fixed perfusion defect noted in basal to mid inferior and inferolateral wall surrounded by small area of jennifer-infarct ischemia suggestive of old myocardial infarction surrounded by mild jennifer-infarct ischemia in RCA territory. This study shows large area of moderate to severe ischemia in proximal to mid anterior and anterolateral wall suggestive of lesion in LAD territory. FUNCTIONAL RESULTS (calculated via Gated SPECT) Stress Image LV EF (%): 56 Stress EDV (mL):134 TID: 0.97 Stress ESV (mL):59 FUNCTIONAL FINDINGS: There appeared to be proximal to mid anterior anterolateral hypokinesis, there appeared to be basal to mid inferior wall hypokinesis IMPRESSIONS Large area of moderate to severe ischemia noted in proximal to mid anterior and anterolateral wall suggestive of stenosis in LAD territory. Medium to large area of fixed perfusion defect suggestive of old myocardial infarction surrounded by mild jennifer-infarct ischemia in inferior inferolateral wall from basal to mid segment suggestive of lesion in RCA territory. Kasandra Saldana MD (Electronically Signed) Final Date: 16 May 2025 13:04 S
--- NOTE | 2025-05-16 08:28 | ECG_ITS ---
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 The perfusion scan will be documented separately. DATA: Baseline heart rate was 51 beats per minute. Baseline blood pressure was 124/82 millimeters of mercury. Target heart rate was 141. Maximum heart rate achieved was 74. which was 52 % of the predicted target heart rate. Maximum blood pressure was 124/65 millimeters of mercury. The reason for ending the test was completion of the protocol. The patient did not experience any symptoms. ELECTROCARDIOGRAM: BASELINE: Sinus bradycardia normal axis. Otherwise, no ST-T changes suggestive of ischemia noted. No arrhythmia noted. EXERCISE: After Lexiscan injection, no ST-T changes suggestive of ischemic noted. No arrhythmia noted. CONCLUSION: Please note due to baseline abnormality of the EKG specificity and sensitivity of the EKG portion of LexiScan MIBI stress test will be low 1. EKG not suggestive of ischemia 2. Lexiscan injection unremarkable. 3. Perfusion scan will be documented separatel Electronically Signed On 06-01-2025 18:42:56 SINGING WAITER OR WAITRESS by KASANDRA SALDANA [email or web address]
[2025-05-16 08:29] VITALS: BMI 23.2
[2025-05-16 09:49] VITALS: BP 116/56; PULSE 69
--- NOTE | 2025-05-16 10:00 | USCV_ITS ---
Luigi Bean Age: 80 Gender: M : 1945 Exam Date: 05/16/2025 11:00 Ordering Phys: Kasandra Saldana MD ([email or web address]) Technologist: [place] [facility] [place]: cp sob BP: 132 / 74 HR: 58 Rhythm: Sinus Technical Quality: Adequate MEASUREMENTS (Male / Female) Normal Values 2D ECHO LV Diastolic Diameter PLAX 4.1 cm 4.2 - 5.9 / 3.9 - 5.3 cm IVS Diastolic Thickness 1.5 cm 0.6 - 1.0 / 0.6 - 0.9 cm IVS Systolic Thickness 2.0 cm LVPW Diastolic Thickness 1.4 cm 0.6 - 1.0 / 0.6 - 0.9 cm LVPW Systolic Thickness 1.8 cm LVOT Diameter 2.1 cm LV Ejection Fraction 2D Teich 46.5 % LV Ejection Fraction MOD 4C 55.1 % LV Ejection Fraction MOD 2C 81.4 % LV Ejection Fraction 2C AL 81.8 % LA Diameter 3.1 cm RA Systolic Volume 4C AL 40.7 ml RA Systolic Volume 4C MOD 37.6 ml LA Sys Volume AL 77.2 cm cubed LA Sys Volume Index AL 39.2 cm cubed/m squared Aorta at Sinotubular Diameter 2.6 cm M-MODE LA Ao Ratio MM 1.2 AV Cusp Separation MM 1.9 cm DOPPLER AV Peak Velocity 124.0 cm/s LVOT Peak Velocity 72.0 cm/s AV Area Cont Eq vti 2.1 cm squared AV Area Cont Eq pk 2.0 cm squared MV Peak Velocity 117.0 cm/s MV Area PHT 2.5 cm squared Mitral E to A Ratio 0.8 TV Peak Velocity 172.0 cm/s TR Peak Velocity 188.0 cm/s TR Peak Gradient 14.1 mmHg TV Peak E Velocity 98.0 cm/s PV Peak Velocity 67.5 cm/s FINDINGS Left Ventricle Normal left ventricular size, systolic function and wall thickness, with no regional wall motion abnormalities. Left ventricular ejection fraction is estimated at 60 %. Grade I/IV diastolic dysfunction (abnormal relaxation filling pattern), normal to mildly elevated filling pressures. Right Ventricle Normal right ventricular size and systolic function. Right Atrium Normal right atrial size. Left Atrium Moderately increased left atrial size. IA Septum Normal appearance of the interatrial septum. Mitral Valve Mitral annular calcification. No mitral valve stenosis. Moderate mitral valve regurgitation. Aortic Valve Moderate aortic valve calcification. Mild aortic valve stenosis, mean gradient 2.4 mmHg, CAROLYNE 2.1 cm squared. Trace aortic valve regurgitation. Tricuspid Valve Trace tricuspid valve regurgitation. Pulmonic Valve Mild pulmonary valve regurgitation. Pericardium No pericardial effusion. Aorta Normal diameter of the aortic root and ascending thoracic aorta. IVC Normal IVC diameter. CONCLUSIONS Normal left ventricular size, systolic function and wall thickness, with no regional wall motion abnormalities. Left ventricular ejection fraction is estimated at 60 %. Grade I/IV diastolic dysfunction (abnormal relaxation filling pattern), normal to mildly elevated filling pressures. Moderately increased left atrial size. Moderate aortic valve calcification. Mild aortic valve stenosis, mean gradient 2.4 mmHg, CAROLYNE 2.1 cm squared. Trace aortic valve regurgitation. Mitral annular calcification. No mitral valve stenosis. Moderate mitral valve regurgitation. There is no pericardial effusion. Right atrial pressure is around 5 mm of mercury. Kasandra Saldana MD (Electronically Signed) Final Date: 17 May 2025 16:36 S
== END 2025-05-16 08:11 | disposition home or self-care (01) ==
PROVIDERS: PCP Family Medicine; Visit Provider Internal Medicine Cardiovascular Disease
DX: R06.02 Shortness of breath (principal); R07.9 Chest pain, unspecified; Z95.1 Presence of aortocoronary bypass graft; R93.1 Abnormal findings on diagnostic imaging of heart and coronary circulation; I51.7 Cardiomegaly; I34.81 Nonrheumatic mitral (valve) annulus calcification; I34.0 Nonrheumatic mitral (valve) insufficiency; I35.8 Other nonrheumatic aortic valve disorders; I35.0 Nonrheumatic aortic (valve) stenosis; I37.1 Nonrheumatic pulmonary valve insufficiency; I25.9 Chronic ischemic heart disease, unspecified
CPT/HCPCS: 36415; 78452; 93017; 93306; 96374; A9500; J2785